=== PATIENT | male | born 1995 | race Two or more races ===

== ENCOUNTER 2018-05-16 13:08 | Emergency (ER) | payer OTHER ==
[2018-05-16 13:12] VITALS: BP 147/77; PULSE 92; TEMP 98.7; BMI 23.0
--- NOTE | 2018-05-16 13:41 | PDOC ---
History of Present Illness - General Chief Complaint: Pain Stated Complaint: NECK PROBLEM Time Seen by Provider: 05/16/18 13:15 History Source: Patient Exam Limitations: No Limitations - History of Present Illness Initial Comments: 05/16/18 13:36 Pt is a 22 YO male who states the he had one lymph node on the right side of his neck enlarged x 2 days. He denies fever, denies sore throat, denies recent unexplained weight loss, denies rash and denies inability to swallow. Pt denies the area being painful. Pain is a 0/10. Pt denies aggravating/relieivng factors. Past History - Past Medical History Allergies/Adverse Reactions: Allergies Allergy/AdvReac Type Severity Reaction Status Date / Time No Known Allergies Allergy Verified 05/16/18 13:09 COPD: No - Surgical History Neurologic Surgery: Yes (FROM A FALL.) - Suicide/Smoking/Psychosocial Hx Smoking History: Never smoked Have you smoked in the past 12 months: No Information on smoking cessation initiated: No Hx Alcohol Use: No Drug/Substance Use Hx: No Substance Use Type: Marijuana Review of Systems - Review of Systems Able to Perform ROS?: Yes Comments:: 05/16/18 13:40 10 systems reviewed all are negative except those present in HPI All Other Systems: Reviewed and Negative *Physical Exam - Vital Signs Last Vital Signs Temp Pulse Resp BP Pulse Ox 98.7 F 92 H 18 147/77 100 05/16/18 13:10 05/16/18 13:10 05/16/18 13:10 05/16/18 13:10 05/16/18 13:10 - Physical Exam General Appearance: Yes: Appropriately Dressed. No: Apparent Distress HEENT: positive: EOMI, MAGGI, Normal ENT Inspection, Normal Voice Neck: positive: Trachea midline, Normal Thyroid, Lymphadenopathy (R) (0.5 cm nonmobile/nontender lymph node). negative: Tender Respiratory/Chest: positive: Lungs Clear, Normal Breath Sounds. negative: Chest Tender Cardiovascular: positive: Regular Rhythm, Regular Rate. negative: Murmur Gastrointestinal/Abdominal: positive: Normal Bowel Sounds. negative: Tender Musculoskeletal: positive: Normal Inspection. negative: CVA Tenderness Extremity: positive: Normal Capillary Refill Integumentary: positive: Normal Color, Dry, Warm Neurologic: positive: Fully Oriented, Alert Medical Decision Making - Medical Decision Making 05/16/18 13:44 Pt has a normal PE, pt has no red flag signs warranting a CT of the neck. Pt will f/u with his PCP. *DC/Admit/Observation/Transfer Diagnosis at time of Disposition: Lymphadenopathy - Discharge Dispostion Disposition: HOME Condition at time of disposition: Stable Decision to Admit order: No - Referrals - Patient Instructions Printed Discharge Instructions: DI for Lymphadenopathy Additional Instructions: Please follow up with your PCP. - Post Discharge Activity Forms/Work/School Notes: Back to Work
== END 2018-05-16 14:08 | disposition home or self-care (01) ==
LOC: JERFT 13:08
DX: R59.0 Localized enlarged lymph nodes (principal)
CPT/HCPCS: 99281-25